=== PATIENT | male | born 1960 | race Caucasian/White ===

== ENCOUNTER 2021-03-31 10:45 | Inpatient (IN) | payer MEDICARE ==
[2021-03-31] MEDS ORDERED: SODIUM CHLORIDE 0.9% 500 ML 500 ML IV STA (10:54)
[2021-03-31] MEDS ORDERED: fentaNYL (PF) 50 MCG/ML 2 ML AMP IVP STA (10:55)
[2021-03-31 11:11] LABS: Basophils # (A) 0.1 k/uL (0-0.2); Basophils % (A) 1 %; Eosinophils # (A) 0.4 k/uL (0-0.7); Eosinophils % (A) 2 %; HCT 46.8 % (39.0-53.0); HGB 15.8 gm/dL (13.0-17.5); Lymphocytes # (A) 4.1 k/uL (1.0-4.8); Lymphocytes % (A) 25 %; MCH 32.3 pg (25.0-35.0); MCHC 33.8 g/dL (31.0-37.0); MCV 95.6 fL (80.0-100.0); Mean Platelet Volume 7.1; Monocytes # (A) 1.1 k/uL (0-1.0); Monocytes % (A) 7 %; Neutrophils # (A) 10.3 k/uL (1.3-7.7); Neutrophils % (A) 63 %; Platelet Count 242 k/uL (150-450); WBC 16.3 k/uL (3.8-10.6)
[2021-03-31 11:23] LABS: ALT 22 U/L (4-49); AST 28 U/L (17-59); African American GFR (CKD) >90 (>60 ml/min/1.73 sqM); Albumin 4.5 g/dL (3.5-5.0); Alkaline Phosphatase 68 U/L (38-126); Anion Gap 9 mmol/L; Blood Urea Nitrogen 14 mg/dL (9-20); Calcium 9.8 mg/dL (8.4-10.2); Carbon Dioxide 26 mmol/L (22-30); Chloride 104 mmol/L (98-107); Glucose 129 mg/dL (74-99); Non-African American GFR(CKD) >90 (>60 ml/min/1.73 sqM); Potassium 3.6 mmol/L (3.5-5.1); Sodium 139 mmol/L (137-145); Total Bilirubin 0.6 mg/dL (0.2-1.3); Total Protein 6.8 g/dL (6.3-8.2)
[2021-03-31 11:31] LABS: INR 0.9 (<1.2); Prothrombin Time 10.1 sec (9.0-12.0)
[2021-03-31 11:35] LABS: Partial Thromboplastin Time 19.6 sec (22.0-30.0)
[2021-03-31 11:55] LABS: Lipase >20000 U/L (23-300)
[2021-03-31] MEDS ORDERED: HYDROmorphone 1 MG/ML 1 ML SYRINGE IVP STA (12:06)
--- NOTE | 2021-03-31 12:07 | CT ---
EXAMINATION TYPE: CT ChestAbdPelvis w con DATE OF EXAM: 03/31/2021 COMPARISON: HISTORY: epigastric pain, hypotension CT DLP: 1774.4 mGycm Automated exposure control for dose reduction was used. CONTRAST: CT scan of the chest, abdomen and pelvis is performed without Oral Contrast and with IV Contrast, pat ient injected with 100 mL of Isovue 300. FINDINGS: LUNGS: The lungs are grossly clear, there is no concerning parenchymal mass or nodule identified. P araseptal emphysematous changes are present in the upper lobes, there are some interstitial changes p resent with thickened interlobular septal pleural lines anteriorly in the upper lobes There is no ple ural effusion or pneumothorax seen. The tracheobronchial tree is patent. MEDIASTINUM: There are no greater than 1 cm hilar or mediastinal lymph nodes. No pericardial effusi on is seen. There are coronary artery calcifications. AORTA: No significant abnormality is seen. OTHER: No additional significant abnormality is seen. LIVER/GB: Cystic foci again noted within the liver, gallbladder is within normal limits. PANCREAS: Similar to prior exam there is hazy peripancreatic increased attenuation within the surroun ding fat, there is some fluid density present. There is been interval development of low-attenuation along the uncinate process may represent some focal edema or cystic change.. SPLEEN: No significant abnormality is seen. ADRENALS: No significant abnormality is seen. KIDNEYS: No significant abnormality is seen. REPRODUCTIVE ORGANS: Prostate calcifications are present. BOWEL: No significant abnormality is seen. FREE AIR: No Free Air visible. ASCITES: None seen. RETROPERITONEAL ADENOPATHY: No retroperitoneal adenopathy is seen. LYMPH NODES: No greater than 1 cm abdominal or pelvic lymph nodes are appreciated. URINARY BLADDER: No significant abnormality is seen. PELVIC ADENOPATHY: None visualized. OSSEOUS STRUCTURES: No significant abnormality is seen. IMPRESSION: Correlate for pancreatitis, follow-up as indicated
[2021-03-31] MEDS ORDERED: ONDANSETRON 4 MG/2 ML VIAL IVP PRN (12:54)
[2021-03-31] MEDS ORDERED: NALOXONE 0.4 MG/ML 1 ML VIAL IV PRN (12:54)
[2021-03-31] MEDS ORDERED: PIPERACILLIN-TAZOBACTAM 3.375 GM in SODIUM CHLORIDE 0.9% 100 ML IVPB SCH (14:00)
[2021-03-31] MEDS: SODIUM CHLORIDE 0.9% 1,000 ML IV SCH ×2 (14:15→21:11)
[2021-03-31] MEDS: HYDROmorphone 1 MG/ML 1 ML SYRINGE IVP PRN ×3 (14:41→21:16)
[2021-03-31 17:04] LABS: Appearance,Urine Clear (Clear); Bilirubin,Urine Negative (Negative); Blood,Urine Negative (Negative); Color,Urine Light Yellow; Glucose,Urine (UA) Negative (Negative); Ketones,Urine Negative (Negative); Leukocyte Esterase,Urine Small (Negative); Nitrite,Urine Negative (Negative); Protein,Urine Negative (Negative); RBC,Urine 2 /hpf (0-5); Urobilinogen,Urine <2.0 mg/dL (<2.0); WBC,Urine 3 /hpf (0-5)
[2021-03-31 17:05] LABS: Specific Gravity,Urine 1.048 (1.001-1.035)
[2021-03-31] MEDS ORDERED: HYDROCODONE PO PRN (19:05)
[2021-03-31] MEDS ORDERED: [UNRECOGNIZED DRUG - OTHER] PO PRN (19:05)
[2021-03-31] MEDS ORDERED: ACETAMINOPHEN PO PRN (19:05)
[2021-03-31] MEDS ORDERED: NITROGLYCERIN SL TABS 0.4 MG TAB SUBLINGUAL PRN (19:05)
[2021-03-31] MEDS ORDERED: ALBUTEROL NEBULIZED 2.5 MG/3 ML INHALATION PRN (19:05)
[2021-03-31] MEDS ORDERED: TEMAZEPAM 15 MG CAP PO PRN (19:06)
[2021-03-31] MEDS ORDERED: ALPRAZolam 0.25 MG TAB PO PRN (19:06)
[2021-03-31 19:51] LABS: ALT 18 U/L (4-49); AST 22 U/L (17-59); African American GFR (CKD) >90 (>60 ml/min/1.73 sqM); Albumin 3.7 g/dL (3.5-5.0); Albumin/Globulin Ratio 1.9; Alkaline Phosphatase 58 U/L (38-126); Anion Gap 4 mmol/L; Blood Urea Nitrogen 12 mg/dL (9-20); Calcium 8.8 mg/dL (8.4-10.2); Carbon Dioxide 28 mmol/L (22-30); Chloride 104 mmol/L (98-107); Glucose 139 mg/dL (74-99); Non-African American GFR(CKD) >90 (>60 ml/min/1.73 sqM); Sodium 136 mmol/L (137-145); Total Bilirubin 0.3 mg/dL (0.2-1.3); Total Protein 5.7 g/dL (6.3-8.2)
[2021-03-31 20:19] LABS: Amylase 1176 U/L (30-110)
[2021-03-31 20:20] LABS: Lipase 6270 U/L (23-300)
[2021-03-31] MEDS ORDERED: HYDROcodone/APAP 7.5-325MG 1 EACH TAB PO PRN ×2 (20:54→20:56)
[2021-03-31] MEDS: METOPROLOL SUCCINATE (ER) 50 MG TAB.ER.24H PO SCH (21:10)
[2021-03-31] MEDS: PANTOPRAZOLE 40 MG/10 ML VIAL IVP SCH (21:10)
[2021-03-31] MEDS: FUROSEMIDE 40 MG TAB PO SCH (21:10)
[2021-03-31] MEDS: MORPHINE SULFATE ER 15 MG TABLET PO SCH (21:10)
[2021-03-31] MEDS: HEPARIN SODIUM,PORCINE/PF 5,000 UNIT/0.5 ML SYRINGE SQ SCH ×2 (21:11→21:22)
[2021-03-31] MEDS: MEROPENEM 2 GM in SODIUM CHLORIDE 0.9% 100 ML IVPB SCH (21:11)
[2021-03-31] MEDS: SYMBICORT 80-4.5 MCG INHALER INHALATION SCH (21:27)
--- NOTE | 2021-03-31 21:33 | HP ---
HISTORY AND PHYSICAL DATE OF SERVICE: 03/31/2021 CHIEF COMPLAINT: Abdominal pain. HISTORY OF PRESENT ILLNESS: This 61-year-old gentleman with a past medical history of multiple complex medical issues, including CAD, hypertension, hyperlipidemia, history of memory impairment, history of myocardial infarction, history of mitral valve prolapse, history of pulmonary embolism, history of previous myocardial infarction, history of CAD, stent, being followed by physicians in the [facility] area, had a previous episode of pancreatitis about 5 years ago. Currently the patient is complaining of severe abdominal pain, 10/10 in intensity, felt in the anterior part of the chest which is a pressure type of pain without much radiation. The patient also became severely diaphoretic and nauseated. The patient came to [facility] and was admitted for further evaluation and treatment. The evaluation showed extremely elevated lipase levels at more than 20,000. Lactic acid was 2.1. The patient was admitted for further evaluation. WBC was 16.3. Troponin was less than 0.012. The EKG showed nonspecific ST- T changes. Otherwise, a CT scan of the chest, abdomen and pelvis, which was reviewed personally by me, showed evidence of pancreatitis in the abdominal CT scan. Focal edema or cystic changes also noted. There is no history of fever, rigor, chills. No history of headache, loss of consciousness, seizures at this time. PAST MEDICAL HISTORY: History of CAD, hypertension, hyperlipidemia, history of memory impairment, myocardial infarction, history of pulmonary embolism. HOME MEDICATIONS: Zestril 10 mg p.o. daily, Crestor, Nitrostat, MS Contin, Toprol-XL, Synthroid, Vicodin, Lasix, Trelegy, Plavix, Ventolin. Doses are reviewed. ALLERGIES: SULFA. FAMILY HISTORY: History of CHF, diabetes, myocardial infarction. SOCIAL HISTORY: Previous history of smoking. No history of alcohol intake. REVIEW OF SYSTEMS: ENT: No diminished hearing. No diminished vision. CARDIOVASCULAR SYSTEM: As mentioned earlier. RESPIRATORY SYSTEM: As mentioned earlier. GI: As mentioned earlier. : No dysuria. NERVOUS SYSTEM: No numbness, weakness. ALLERGY/IMMUNOLOGY: No asthma or hay fever. MUSCULOSKELETAL: As mentioned earlier. HEMATOLOGY/ONCOLOGY: No history of anemia. ENDOCRINE: No history of diabetes. CONSTITUTIONAL: As mentioned earlier. DERMATOLOGY: Negative. RHEUMATOLOGY: Negative. PSYCHIATRY: As mentioned earlier. PHYSICAL EXAMINATION: Patient alert and oriented x3. Pulse 70, blood pressure 110/60, respiration 18, temperature normal, pulse ox 98% on 2 L. HEENT: Conjunctivae normal. Oral mucosa moist. NECK: No jugular venous distention. No carotid bruit. No lymph node enlargement. CARDIOVASCULAR: S1, S2 muffled. No S3. No S4. RESPIRATION: Breath sounds diminished at the bases. A few rhonchi. No crackles. ABDOMEN: Soft. Mild diffuse distention. Mild diffuse tenderness. No guarding. No rigidity. No mass palpable. Bowel sounds present. No ascites. LEGS: No edema. No swelling. NERVOUS SYSTEM: Higher functions as mentioned earlier. Moves all 4 limbs. No focal motor or sensory deficit. LYMPHATICS: No lymph node palpable in neck, axillae or groin. SKIN: No ulcer, rash, bleeding. JOINTS: No active deforming arthropathy. LABS: WBC 16.2, hemoglobin 15.8, sodium 139, potassium 3.6. ASSESSMENT: 1. Acute severe pancreatitis. 2. Increased white count. 3. Elevated lactic acid secondary to pancreatitis. 4. Elevated random glucose. 5. Elevated amylase, lipase. 6. History of coronary artery disease and stent. 7. Hypertension. 8. Hyperlipidemia. 9. History of memory impairment. 10.History of myocardial infarction. 11.History of mitral valve prolapse. 12.History of pulmonary embolism. 13.Hypothyroidism. 14.History of chronic obstructive pulmonary disease. 15.History of hyperlipidemia. 16.History of hypertension. 17.History of closed-head injury. 18.History of peripheral vascular disease. 19.History of nicotine dependence. 20.Obesity with body mass index of 35.2. 21.FULL CODE. RECOMMENDATIONS AND DISCUSSION: In this 61-year-old gentleman who presented with multiple complex medical issues, we will monitor the patient closely. I would keep the patient strictly n.p.o., repeat labs. Symptomatic treatment. I would also recommend Merrem empirically because of the constitutional symptoms. I would also recommend cultures to rule out the possibility of any sepsis at this time. Otherwise, all the cardiac enzymes are normal, but I would also recommend a 2D echo with Doppler to ensure normalcy. Will recommend remote telemetry. Continue to monitor. Continue the pain medications. See orders for further details. Prognosis guarded because of multiple complex medical issues. Discussed with the patient at length and staff. Patient understands and agrees. Further recommendations to follow. DVT prophylaxis and proton pump inhibitors. MMODL / IJN: [id number] /
[2021-04-01 00:49] LABS: Amphetamine Screen,Urine Not Detected (NotDetected); Barbiturate Screen,Urine Not Detected (NotDetected); Benzodiazepines Screen,Urine Not Detected (NotDetected); Cocaine Screen,Urine Not Detected (NotDetected); Methadone Screen, Urine Not Detected (NotDetected); Opiate Screen,Urine Detected (NotDetected); Oxycodone Screen, Urine Not Detected (NotDetected); Phencyclidine Screen,Urine Not Detected (NotDetected); Tricyclic Antidepressant,Urine Not Detected (NotDetected); Urn Cannabinoid Scrn Detected (NotDetected)
[2021-04-01] MEDS: HYDROmorphone 1 MG/ML 1 ML SYRINGE IVP PRN ×2 (02:10→10:48)
[2021-04-01] MEDS: HEPARIN SODIUM,PORCINE/PF 5,000 UNIT/0.5 ML SYRINGE SQ SCH ×2 (04:06→12:06)
[2021-04-01] MEDS: SODIUM CHLORIDE 0.9% 1,000 ML IV SCH ×3 (04:09→19:07)
[2021-04-01] MEDS: MEROPENEM 2 GM in SODIUM CHLORIDE 0.9% 100 ML IVPB SCH ×3 (04:09→19:08)
[2021-04-01] MEDS: LEVOTHYROXINE 50 MCG TAB PO SCH (04:11)
[2021-04-01 05:30] LABS: Basophils % (A) 0 %; Eosinophils # (A) 0.3 k/uL (0-0.7); Eosinophils % (A) 2 %; HCT 42.7 % (39.0-53.0); Lymphocytes # (A) 1.7 k/uL (1.0-4.8); Lymphocytes % (A) 12 %; MCH 32.1 pg (25.0-35.0); MCHC 32.9 g/dL (31.0-37.0); MCV 97.7 fL (80.0-100.0); Mean Platelet Volume 7.6; Monocytes # (A) 0.7 k/uL (0-1.0); Monocytes % (A) 5 %; Neutrophils # (A) 11.4 k/uL (1.3-7.7); Neutrophils % (A) 80 %; Platelet Count 160 k/uL (150-450); RBC 4.37 m/uL (4.30-5.90); WBC 14.3 k/uL (3.8-10.6)
[2021-04-01] MEDS: SYMBICORT 80-4.5 MCG INHALER INHALATION SCH ×2 (07:26→21:13)
[2021-04-01] MEDS: IPRATROPIUM 0.5 MG/2.5 ML NEBU INHALATION SCH ×4 (07:27→21:13)
[2021-04-01] MEDS: PANTOPRAZOLE 40 MG/10 ML VIAL IVP SCH ×2 (08:19→20:34)
[2021-04-01] MEDS: METOPROLOL SUCCINATE (ER) 50 MG TAB.ER.24H PO SCH ×2 (08:20→20:33)
[2021-04-01] MEDS: lisinopriL 10 MG TAB PO SCH (08:20)
[2021-04-01] MEDS: MORPHINE SULFATE ER 15 MG TABLET PO SCH ×2 (08:20→20:33)
[2021-04-01] MEDS: FUROSEMIDE 40 MG TAB PO SCH ×2 (08:21→20:33)
--- NOTE | 2021-04-01 08:32 | XR ---
EXAMINATION TYPE: XR chest 1V portable DATE OF EXAM: 04/01/2021 COMPARISON: Chest x-ray 01/15/2016 HISTORY: Congestive heart failure TECHNIQUE: Single frontal view of the chest is obtained. FINDINGS: Technique is somewhat apical lordotic and rotated. There are overlying artifacts. There is no evident pneumothorax or pleural effusion. Patchy basilar densities are noted. Cardiac mediastinal silhouette is stable. IMPRESSION: Probable basilar atelectasis, follow-up PA and lateral chest x-ray when stable.
--- NOTE | 2021-04-01 13:51 | ECHOF ---
Referral Reason:chf MEASUREMENTS -------- HEIGHT: 170.2 cm WEIGHT: 102.1 kg BP: 99/64 IVSd: 1.3 cm (0.6 - 1.1) LVIDd: 3.8 cm (3.9 - 5.3) LVPWd: 1.4 cm (0.6 - 1.1) EDV(Teich): 63 ml IVSs: 1.6 cm LVIDs: 2.2 cm LVPWs: 1.7 cm %IVS Thck: 26 % ESV(Teich): 16 ml EF(Teich): 74 % %FS: 42 % SV(Teich): 47 ml RVIDd: 4.4 cm (< 3.3) RA Diam: 4.2 cm LALs A4C: 4.7 cm LAAs A4C: 12.1 cm LAESV A-L A4C: 26 ml LAESV MOD A4C: 23 ml LALs A2C: 5.0 cm LAAs A2C: 13.3 cm LAESV A-L A2C: 30 ml LAESV MOD A2C: 29 ml LAESV(A-L): 29 ml LAESV Index (A-L): 13.46 ml/m Ao Diam: 3.5 cm (2.0 - 3.7) AV Cusp: 1.9 cm (1.5 - 2.6) MV E Bjorn: 0.54 m/s MV DecT: 315 ms MV Dec Lynn: 1.7 m/s MV A Bjorn: 0.84 m/s MV E/A Ratio: 0.64 MV PHT: 91 ms LVOT Vmax: 0.85 m/s LVOT maxP.87 mmHg AV Vmax: 1.43 m/s AV maxP.21 mmHg TR Vmax: 2.42 m/s TR maxP.50 mmHg RAP: 5.00 mmHg RVSP: 28.50 mmHg FINDINGS -------- Sinus rhythm. This was a technically difficult study with suboptimal views. The left ventricular size is normal. There is mild concentric left ventricular hypertrophy. Overa ll left ventricular systolic function is normal with, an EF between 55 - 60 %. The right ventricle is moderately enlarged. Normal LA size by volume 22+/-6 ml/m2. The right atrium is mildly enlarged. 5.0mg of Lumason was utilized for enhancement of images Interatrial and interventricular septum intact. The aortic valve was not well visualized. There is no evidence of aortic regurgitation. There is no evidence of aortic stenosis. The mitral valve was not well visualized. There is trace to mild mitral regurgitation. Mild tricuspid regurgitation present. There is no evidence of pulmonary hypertension. The right v entricular systolic pressure, as measured by Doppler, is 28.50mmHg. The pulmonic valve was not well visualized. There is no pulmonic regurgitation present. The aortic root size is normal. IVC Not well visulized. There is no pericardial effusion. CONCLUSIONS -------- 1. The left ventricular size is normal. 2. There is mild concentric left ventricular hypertrophy. 3. Overall left ventricular systolic function is normal with, an EF between 55 - 60 %. 4. The right ventricle is moderately enlarged. 5. The right atrium is mildly enlarged. 6. There is trace to mild mitral regurgitation. 7. Mild tricuspid regurgitation present. BATCH HEAT TREAT OPERATOR: Vita Li RDCS
[2021-04-01] MEDS: ENOXAPARIN 40 MG/0.4 ML SYRINGE SQ SCH (16:21)
[2021-04-01 16:37] LABS: African American GFR (CKD) 119.7 (60.0-200.0); Albumin 3.8 g/dL (3.80-4.90); Albumin/Globulin Ratio 2.38 (1.60-3.17); Anion Gap 6.8 mmol/L (4.00-12.00); BUN/Creat Ratio 14.29 Ratio (12.00-20.00); Calcium 8.2 mg/dL (8.7-10.3); Carbon Dioxide 23.2 mmol/L (21.6-31.8); Chol/HDL Ratio 4.81; Globulin 1.6 g/dL (1.6-3.3); LDL Cholesterol,Calculated 78.8 mg/dL (0.0-131.0); Non-African American GFR(CKD) 103.3 (60.0-200.0); Potassium 3.8 mmol/L (3.5-5.5); Total Bilirubin 0.5 mg/dL (0.2-1.2); Total Protein 5.4 g/dL (6.2-8.2); VLDL Calculation 24.2 mg/dL (5.00-40.00)
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
--- NOTE | 2021-04-01 18:41 | PN ---
PROGRESS NOTE DATE OF SERVICE: 04/01/2021 This 61-year-old gentleman was admitted with severe abdominal pain and features of acute pancreatitis. The patient has been treated symptomatically. The chest x-ray showed some atelectasis. The patient apparently refusing any inhalation treatment at this time. A 2D echo with Doppler showed ejection fraction about 50-60% and no other abnormality. No chest pain. No palpitations. No fever. PAST MEDICAL HISTORY: Reviewed. REVIEW OF SYSTEMS: CARDIOVASCULAR As mentioned earlier. RESPIRATORY No cough, no hemoptysis. GI As mentioned earlier. No dysuria or hematuria. NERVOUS No numbness or weakness. CURRENT MEDICATIONS: Reviewed include Mulga, Ventolin, Xanax, Symbicort, Lasix, heparin, Dilaudid, Atrovent, Synthroid, Zestril, meropenem, morphine sulfate, Narcan, Nitrostat, Protonix. Doses are reviewed. PHYSICAL EXAMINATION: Patient is alert oriented x3. Pulse 70, blood pressure is 109/70, respiration 18, temperature 97.9, pulse ox 93% on 2 L. HEENT: Conjunctivae normal. Oral mucosa moist. NECK: No jugular venous distention. No lymph node enlargement. CARDIOVASCULAR: S1, S2, muffled. No S3, no S4, RESPIRATORY: Diminished breath sounds at the bases. A few scattered rhonchi and crackles at the bases. ABDOMEN: Mildly distended. No guarding, no rigidity. No mass palpable. Bowel sounds present. No ascites. LEGS: No edema, no swelling. NERVOUS SYSTEM: No focal deficits. LABS: WBC 14.3 and neutrophils 11.0. Sodium 136. Amylase is 1176 and lipase 72574. LABS: Today's labs are pending at this time. ASSESSMENT: 1. Acute severe pancreatitis with severe abdominal pain. 2. Increased WBC. 3. Elevated lactic acid secondary to pancreatitis, present on admission. 4. Elevated random glucose. 5. Elevated amylase and lipase. 6. History of CAD, stent. 7. Hypertension. 8. Hyperlipidemia. 9. History of memory impairment. 10.History of myocardial infarction. 11.History of mitral valve prolapse. 12.History of pulmonary embolism. 13.Hypothyroidism. 14.History of COPD. 15.History of closed-head injury. 16.History of peripheral vascular disease. 17.History of nicotine dependence. 18.Obesity with body mass index of 35.2. 19.FULL CODE. RECOMMENDATIONS: Continue current management and symptomatic treatment. Otherwise, at this time I recommend continue the current medications. Repeat labs will be ordered. Otherwise, DVT prophylaxis. Guarded prognosis because of multiple complex medical issues. Further recommendations to follow. MMODL / IJN: [id number] /
--- NOTE | 2021-04-01 18:48 | US ---
EXAMINATION TYPE: US gallbladder DATE OF EXAM: 04/01/2021 COMPARISON: CT 03/31/2021 CLINICAL HISTORY: Pancreatitis . Difficult exam due to overlying bowel gas EXAM MEASUREMENTS: Liver Length: 17.6 cm Gallbladder Wall: 0.2 cm CBD: 0.4 cm Right Kidney: 11.3 x 4.7 x 5.5 cm Pancreas: Tail obscured by overlying bowel gas Liver: Measuring upper limits of normal. Heterogeneous. Cyst left lobe measuring 1.1 x 0.8 x 1.1 cm Gallbladder: wnl Evidence for sonographic Francisco's sign: No CBD: wnl as visualized, distal portion obscured by bowel gas Right Kidney: No hydronephrosis or masses seen IMPRESSION: No gallstones or dilated ducts. No evidence of ascites.
[2021-04-02] MEDS: MEROPENEM 2 GM in SODIUM CHLORIDE 0.9% 100 ML IVPB SCH ×3 (04:44→19:57)
[2021-04-02] MEDS: LEVOTHYROXINE 50 MCG TAB PO SCH (04:44)
[2021-04-02] MEDS: SODIUM CHLORIDE 0.9% 1,000 ML IV SCH ×3 (04:44→20:42)
[2021-04-02 06:21] LABS: Basophils % (A) 0 %; Eosinophils # (A) 0.2 k/uL (0-0.7); Eosinophils % (A) 2 %; HCT 44.4 % (39.0-53.0); HGB 14.5 gm/dL (13.0-17.5); Lymphocytes # (A) 1.9 k/uL (1.0-4.8); Lymphocytes % (A) 16 %; MCH 31.9 pg (25.0-35.0); MCHC 32.6 g/dL (31.0-37.0); MCV 97.8 fL (80.0-100.0); Mean Platelet Volume 7.6; Monocytes # (A) 0.8 k/uL (0-1.0); Monocytes % (A) 7 %; Neutrophils # (A) 8.3 k/uL (1.3-7.7); Neutrophils % (A) 73 %; Platelet Count 181 k/uL (150-450); RBC 4.54 m/uL (4.30-5.90); RDW 14.2 % (11.5-15.5); WBC 11.4 k/uL (3.8-10.6)
[2021-04-02] MEDS: PANTOPRAZOLE 40 MG/10 ML VIAL IVP SCH (08:44)
[2021-04-02] MEDS: ENOXAPARIN 40 MG/0.4 ML SYRINGE SQ SCH (08:44)
[2021-04-02] MEDS: METOPROLOL SUCCINATE (ER) 50 MG TAB.ER.24H PO SCH ×2 (08:45→20:41)
[2021-04-02] MEDS: lisinopriL 10 MG TAB PO SCH (08:46)
[2021-04-02] MEDS: MORPHINE SULFATE ER 15 MG TABLET PO SCH ×2 (08:46→20:40)
[2021-04-02] MEDS: FUROSEMIDE 40 MG TAB PO SCH (08:49)
[2021-04-02] MEDS: IPRATROPIUM 0.5 MG/2.5 ML NEBU INHALATION SCH ×4 (09:58→20:37)
[2021-04-02] MEDS: SYMBICORT 80-4.5 MCG INHALER INHALATION SCH ×2 (09:58→20:37)
[2021-04-02 11:59] LABS: African American GFR (CKD) 113.3 (60.0-200.0); Albumin 4.1 g/dL (3.80-4.90); Albumin/Globulin Ratio 2.41 (1.60-3.17); Anion Gap 9.2 mmol/L (4.00-12.00); BUN/Creat Ratio 12.5 Ratio (12.00-20.00); Calcium 8.7 mg/dL (8.7-10.3); Carbon Dioxide 25.8 mmol/L (21.6-31.8); Chol/HDL Ratio 4.73; Globulin 1.7 g/dL (1.6-3.3); LDL Cholesterol,Calculated 85.4 mg/dL (0.0-131.0); Non-African American GFR(CKD) 97.8 (60.0-200.0); Potassium 3.8 mmol/L (3.5-5.5); Total Bilirubin 0.8 mg/dL (0.2-1.2); Total Protein 5.8 g/dL (6.2-8.2); VLDL Calculation 26.6 mg/dL (5.00-40.00)
--- NOTE | 2021-04-02 15:00 | PN ---
PROGRESS NOTE DATE OF SERVICE: 04/02/2021 This 61-year-old gentleman admitted with acute severe pancreatitis being closely monitored at this time. The gallbladder ultrasound was done. Surgical evaluation is in progress. There were no gallstones. Amylase is still elevated. No chest pain. No palpitations. No new complaints of abdominal pain. PHYSICAL EXAMINATION: Alert and oriented x3. Pulse 85, blood pressure 100/60, respiration 18, temperature 97.8, pulse ox 94% on room air. HEENT: Conjunctivae normal. Oral mucosa moist. NECK: No jugular venous distention. No lymph node enlargement. CARDIOVASCULAR: S1, S2, muffled. No S3, no S4, RESPIRATORY: Diminished breath sounds at the bases. A few scattered rhonchi. ABDOMEN: Soft, obese. Minimal discomfort. No guarding, no rigidity. No mass palpable. No ascites. LEGS: No edema, no swelling. NERVOUS SYSTEM: No focal deficits. LAB STUDIES: WBC 9.4, sodium 140, potassium 3.8. Amylase is 212 and lipase is 59. UA noted. ASSESSMENT: 1. Acute severe pancreatitis with severe abdominal pain present on admission. 2. Increased WBC. 3. Elevated lactic acid secondary to pancreatitis, present on admission. 4. Elevated random glucose. 5. Elevated amylase and lipase. 6. History of CAD, stent. 7. Hypertension. 8. Hyperlipidemia. 9. History of memory impairment. 10.History of myocardial infarction. 11.History of mitral prolapse. 12.History of pulmonary embolism. 13.Hypothyroidism. 14.History of chronic obstructive pulmonary disease. 15.History of closed-head injury. 16.Peripheral vascular disease. 17.History nicotine dependence. 18.Obesity with body mass index of 35.6. 19.FULL CODE. RECOMMENDATIONS AND DISCUSSION: I recommend to continue current management and symptomatic treatment. The patient has empiric prophylactic antibiotics but, however, the patient is making significant improvement. The patient is n.p.o. so far. I would initiate p.o. fluids and increase gradually. Follow closely with Surgery. The prognosis is guarded because of multiple complex medical issues, discussed with the patient at length. The patient is willing to stay one more day. We will continue to monitor. Further recommendations to follow. Repeat labs tomorrow. MMODL / IJN: [id number] /
[2021-04-02] MEDS: PANTOPRAZOLE 40 MG TABLET PO SCH (20:40)
[2021-04-03] MEDS: MEROPENEM 2 GM in SODIUM CHLORIDE 0.9% 100 ML IVPB SCH (04:26)
[2021-04-03] MEDS: SODIUM CHLORIDE 0.9% 1,000 ML IV SCH (04:30)
[2021-04-03 05:42] VITALS: PULSE 78
[2021-04-03 06:07] LABS: HCT 40.3 % (39.0-53.0); HGB 13.3 gm/dL (13.0-17.5); MCH 32.1 pg (25.0-35.0); MCHC 33.1 g/dL (31.0-37.0); MCV 96.9 fL (80.0-100.0); Mean Platelet Volume 7.7; Platelet Count 171 k/uL (150-450); RBC 4.16 m/uL (4.30-5.90); RDW 13.5 % (11.5-15.5); WBC 10.2 k/uL (3.8-10.6)
[2021-04-03] MEDS: LEVOTHYROXINE 50 MCG TAB PO SCH (06:09)
[2021-04-03 06:24] LABS: AST 25 U/L (17-59); African American GFR (CKD) >90 (>60 ml/min/1.73 sqM); Albumin 3.5 g/dL (3.5-5.0); Albumin/Globulin Ratio 1.6; Alkaline Phosphatase 58 U/L (38-126); Amylase 72 U/L (30-110); Blood Urea Nitrogen 12 mg/dL (9-20); Calcium 8.8 mg/dL (8.4-10.2); Carbon Dioxide 24 mmol/L (22-30); Chloride 106 mmol/L (98-107); Globulin 2.2 g/dL; Glucose 89 mg/dL (74-99); Non-African American GFR(CKD) >90 (>60 ml/min/1.73 sqM); Total Bilirubin 0.8 mg/dL (0.2-1.3); Total Protein 5.7 g/dL (6.3-8.2)
[2021-04-03 06:46] LABS: ALT 14 U/L (4-49); Anion Gap 7 mmol/L; Lipase 82 U/L (23-300); Potassium 3.9 mmol/L (3.5-5.1); Sodium 137 mmol/L (137-145)
[2021-04-03 08:03] VITALS: BP 154/84; RESP 16; TEMP 98.1
[2021-04-03] MEDS: PANTOPRAZOLE 40 MG TABLET PO SCH (08:09)
[2021-04-03] MEDS: lisinopriL 10 MG TAB PO SCH (08:09)
[2021-04-03] MEDS: ENOXAPARIN 40 MG/0.4 ML SYRINGE SQ SCH (08:09)
[2021-04-03] MEDS: METOPROLOL SUCCINATE (ER) 50 MG TAB.ER.24H PO SCH (08:09)
[2021-04-03] MEDS: MORPHINE SULFATE ER 15 MG TABLET PO SCH (08:10)
[2021-04-03] MEDS: IPRATROPIUM 0.5 MG/2.5 ML NEBU INHALATION SCH (08:45)
[2021-04-03] MEDS: SYMBICORT 80-4.5 MCG INHALER INHALATION SCH (08:45)
[2021-04-03] MEDS ORDERED: FUROSEMIDE 40 MG TAB PO SCH (09:00)
--- NOTE | 2021-04-03 09:15 | P.PN ---
Progress Note - Text Progress Note Date: 04/02/21 The patient feels better today. He still states his pain is significant. On exam vital signs are stable. Abdomen soft. Tenderness in epigastric area. Improving pancreatic Todd. Patient will have his diet advanced normal. Ultrasound results are pending.
--- NOTE | 2021-04-03 12:04 | P.PN ---
Subjective Progress Note Date: 04/03/21 CHIEF COMPLAINT: Pancreatitis HISTORY OF PRESENT ILLNESS: Patient's abdominal pain has improved. He reports minimal lower abdominal discomfort. He is having bowel movements. He is tolerating diet. His lipase has normalized. He is afebrile. WBC normalized at 10.2 lipase 82 abdominal ultrasound showed no evidence of gallstones PHYSICAL EXAM: VITAL SIGNS: Reviewed. GENERAL: Well-developed in no acute distress. HEENT: No sclera icterus. Extraocular movements grossly intact. Moist buccal mucosa. Head is atraumatic, normocephalic. ABDOMEN: Soft. Nondistended. Minimal epigastric tenderness NEUROLOGIC: Alert and oriented. Cranial nerves II through XII grossly intact. ASSESSMENT: 1. Acute pancreatitis resolved PLAN: -Advanced diet as tolerated -Patient can be discharged from surgical standpoint and he said Physician University Relations Director note has been reviewed by physician. Signing provider agrees with the documented findings, assessment, and plan of care. Objective - Vital Signs Vital signs: Vital Signs Temp 98.1 F 04/03/21 08:01 Pulse 78 04/03/21 08:01 Resp 16 04/03/21 08:01 BP 154/84 04/03/21 08:01 Pulse Ox 92 L 04/03/21 05:00 Intake & Output 04/02/21 04/03/21 04/03/21 18:59 06:59 18:59 Intake Total 600 Balance 600 Intake: Oral 600 Other: Voiding Method Toilet Toilet Urinal Urinal # Voids 1 2 - Labs CBC & Chem 7: 04/03/21 05:31 04/03/21 05:31 Labs: Abnormal Lab Results - Last 24 Hours (Table) 04/03/21 04/03/21 Range/Units 05:31 05:31 RBC 4.16 L (4.30-5.90) m/uL Creatinine 0.64 L (0.66-1.25) mg/dL Total Protein 5.7 L (6.3-8.2) g/dL Microbiology - Last 24 Hours (Table) 03/31/21 21:21 Blood Culture - Preliminary Blood No Growth after 48 hours
--- NOTE | 2021-04-04 02:24 | DS ---
DISCHARGE SUMMARY DATE OF SERVICE: 04/03/2021 FINAL DIAGNOSES: 1. Acute severe pancreatitis with severe abdominal pain present on admission. 2. Increased WBC. 3. Elevated lactic acid secondary to pancreatitis, present on admission. 4. Elevated random glucose. 5. Elevated amylase and lipase. 6. History of coronary artery disease/stent. 7. Hypertension. 8. Hyperlipidemia. 9. History of memory impairment. 10.History of myocardial infarction. 11.History of mitral valve prolapse. 12.History of pulmonary embolism. 13.Hypothyroidism. 14.History of chronic obstructive pulmonary disease. 15.History of closed-head injury. 16.Peripheral vascular disease. 17.History nicotine dependence. 18.Obesity with body mass index of 35.6. 19.FULL CODE. DISCHARGE DISPOSITION: The patient will be discharged in stable condition with guarded prognosis. HISTORY OF PRESENT ILLNESS: This 61-year-old gentleman with a past medical history of multiple medical problems admitted with features of acute severe pancreatitis, acute severe abdominal pain. The patient treated conservatively. Surgery was consulted and the patient improved significantly. Amylase subsequently improved. Patient able to tolerate some diet. On exam, vitals are stable. Cardiovascular S1, S2. Abdomen soft. Nervous system: No focal deficits. I would recommend the patient follow up with primary physician. Gastroenterology as an outpatient. The patient understands and agrees. Other evaluation including ultrasound gallbladder was negative. DISCHARGE ADVICE AND MEDICATIONS: 1. Diet is soft bland low-fat. 2. Activity limited until Followup. 3. Follow up with Dr. Rangel in 2-3 days. 4. Follow up with Gastroenterology as recommended. 5. Crestor 40 mg q.h.s. 6. Lasix 40 mg p.o. daily. 7. MS Contin 15 mg p.o. b.i.d. 8. Nitrostat p.r.n. 9. Plavix 75 mg p.o. daily. 10.Levothyroxine 50 mcg p.o. daily. 11.Toprol-XL 50 mg p.o. b.i.d. 12.Fluticasone 1 puff daily. 13.Ventolin HFA p.r.n. 14.Hydrocodone 1 daily. 15.Zestril 10 mg p.o. daily. 16.Protonix 40 mg p.o. b.i.d. MMODL / CAILINN: [id number] / PEG
== END 2021-04-03 11:55 | disposition home or self-care (01) | DRG 440 ==
LOC: EC 10:45 → 5NMEDONC 12:54
PROVIDERS: ADMIT Internal Medicine; ATTEND Internal Medicine
DX: K85.90 Acute pancreatitis without necrosis or infection, unspecified (principal); I25.10 Atherosclerotic heart disease of native coronary artery without angina pectoris; I25.2 Old myocardial infarction; I34.1 Nonrheumatic mitral (valve) prolapse; I73.9 Peripheral vascular disease, unspecified; J44.9 Chronic obstructive pulmonary disease, unspecified; Z68.35 Body mass index [BMI] 35.0-35.9, adult; Z79.02 Long term (current) use of antithrombotics/antiplatelets; Z79.890 Hormone replacement therapy; Z79.899 Other long term (current) drug therapy; R56.9 Unspecified convulsions; I10 Essential (primary) hypertension; F17.200 Nicotine dependence, unspecified, uncomplicated; E78.5 Hyperlipidemia, unspecified; Z82.49 Family history of ischemic heart disease and other diseases of the circulatory system; Z83.3 Family history of diabetes mellitus; Z86.711 Personal history of pulmonary embolism; Z95.5 Presence of coronary angioplasty implant and graft; E66.9 Obesity, unspecified; E03.9 Hypothyroidism, unspecified; E87.70 Fluid overload, unspecified
CPT/HCPCS: 36415; 71045; 71260; 74177; 76705; 80053; 80061; 80306; 81001; 82150; 83605; 83690; 84484; 85025; 85027; 85610; 85730; 87040; 93005; 93306; 94640; 96361; 96374; 96375; 99285

== ENCOUNTER → 2025-01-10 | Outpatient (CLI) | payer MEDICARE ==
--- NOTE | 2025-01-12 23:42 | CT ---
EXAMINATION TYPE: CT abdomen pelvis w con DATE OF EXAM: 01/10/2025 8:53 AM COMPARISON: None. CLINICAL INDICATION: Male, 64 years old with history of R10.84 GENERALIZED ABDOMINAL PAIN, R side low er to mid abdominal pain TECHNIQUE: Axial images were obtained from above the diaphragm to the pubic rami in the axial plane a t 5 mm thick sections. Reconstructed images are reviewed on the computer in the coronal plane. CONTRAST: 100 mL mL of Isovue 300. Study performed with Oral Contrast DLP: 1588.80 mGycm, Automated exposure control for dose reduction was used. FINDINGS: Limited CT sections are obtained the lung bases. The lung bases are clear. CT ABDOMEN: Liver: Cysts are within the liver Spleen: Normal Pancreas: Normal Adrenal glands: The adrenal glands are normal. Gallbladder: Normal Kidneys: No masses are evident. No hydronephrosis is present. No cysts are present. Delayed images were obtained through the kidneys, which remain unremarkable. Aorta: Vascular calcification is within the aorta. Inferior vena cava: Normal. CT PELVIS: Loops of bowel within the abdomen and pelvis are normal. Fecal debris is within the distal colon. No dilated loops of bowel are evident. There are scattered diverticuli present without acute diverticuli tis. There are loops of bowel which are incompletely distended or lack oral contrast limiting thei r evaluation. Appendix: Normal as visualized. Urinary bladder: Normal. Genitourinary structures: Prostate is prominent and contains calcification. Osseous structures: No suspicious lytic or sclerotic lesions. IMPRESSION: 1. Diverticulosis without acute diverticulitis. 2. Normal appendix [facility], , 01/12/2025 11:40 PM
== END | disposition home or self-care (01) ==
LOC: RADCTMAIN 06:29
PROVIDERS: ATTEND Internal Medicine
DX: K57.30 Diverticulosis of large intestine without perforation or abscess without bleeding (principal); R10.84 Generalized abdominal pain
CPT/HCPCS: 74177; Q9967